=== PATIENT | male | born 2000 | race Caucasian/White ===

== ENCOUNTER 2022-09-15 22:41 | Emergency (ER) | payer BC ==
[~2022-09-15] VITALS: Ht 162.6 cm; Wt 54.4 kg
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
[2022-09-15] MEDS ORDERED: TDAP [DIPH/PERTUSSIS/TET] 0.5 ML VIAL IM ONE ×2 (23:21→23:30)
[2022-09-15 23:22] VITALS: BP 145/70
--- NOTE | 2022-09-15 23:22 | NUR ---
Patient discharged to home in stable condition. Written and verbal after care instructions given. Patient verbalizes understanding of instruction.
== END 2022-09-15 23:27 | disposition home or self-care (01) ==
LOC: ER 22:46
DX: S61.213A Laceration without foreign body of left middle finger without damage to nail, initial encounter (principal); J45.909 Unspecified asthma, uncomplicated; W26.0XXA Contact with knife, initial encounter; Y93.89 Activity, other specified; Y92.89 Other specified places as the place of occurrence of the external cause; Y99.8 Other external cause status
CPT/HCPCS: 90715